=== PATIENT | female | born 1955 | race African-American/Black ===

== ENCOUNTER 2021-08-20 13:27 | Inpatient (IN) | payer MEDICAID, OTHER ==
[~2021-08-20] VITALS: Ht 162.6 cm; Wt 52.9 kg
[2021-08-20] MEDS ORDERED: SODIUM CHLORIDE 0.9% 1,000 ML IV ONE (15:15)
[2021-08-20 15:28] LABS: HEMATOCRIT. 25.6 % (36.0-48.0); HEMOGLOBIN. 7.8 g/dL (12.0-16.0); MEAN CORPUSCULAR HEMOGLOBIN 25.3 pg (28.0-32.0); MEAN CORPUSCULAR VOLUME 82.9 fL (81.0-99.0); MEAN PLATELET VOLUME 7.9 fl (7.4-10.4); PLATELET 555 x1000/uL (130-400); RED BLOOD CELL COUNT 3.09 mill/uL (4.2-5.4); RED CELL DISTRIBUTION WIDTH 16.2 % (11.6-14.6)
[2021-08-20 15:30] LABS: CHLORIDE 113 mEq/L (98-107)
[2021-08-20] MEDS ORDERED: SODIUM CHLORIDE 0.9% 1000ML BAG (SEPSIS BOLUS) IV ONE (15:45)
[2021-08-20] MEDS ORDERED: VANCOMYCIN 1 G PREMIX 200 ML IV ONE (15:45)
[2021-08-20] MEDS ORDERED: PIPERACILLIN/TAZ 3.375G PREMIX 50 ML IV ONE (15:45)
[2021-08-20 17:32] LABS: PLATELET ESTIMATE INCREASED
[2021-08-20 21:06] VITALS: BP 131/63
[2021-08-20 21:09] VITALS: BP 131/63
[2021-08-20 22:05] VITALS: BP 125/90
[2021-08-20] MEDS ORDERED: MORPHINE SULFATE 2 MG/ML CPJ (NOT FOR IM USE) IV PRN (22:15)
[2021-08-20] MEDS ORDERED: ONDANSETRON HCL 4MG/2ML INJ IV PRN (22:15)
[2021-08-20] MEDS ORDERED: NALOXONE HCL 0.4MG/ML VIAL IV PRN (22:30)
[2021-08-20] MEDS: DEXT 5%/0.9% NACL 1,000 ML IV SCH (23:12)
[2021-08-20] MEDS: PIPERACILLIN/TAZOBACTAM 3.375 G in DEXTROSE 5% WATER 50 ML IV SCH (23:13)
[2021-08-21] VITALS (14 sets, daily range): BP systolic 110–152; BP diastolic 62–87
[2021-08-21] MEDS ORDERED: TOPUD PO (04:09)
[2021-08-21] MEDS ORDERED: DOCU100T GT (04:11)
[2021-08-21] MEDS ORDERED: GABAPENTIN 250 MG/5 ML GT (04:19)
[2021-08-21] MEDS ORDERED: SENN-155 GT (04:21)
[2021-08-21] MEDS ORDERED: HYDR118S9 GT (04:23)
[2021-08-21] MEDS ORDERED: LOSA25TA26 GT (04:24)
[2021-08-21] MEDS ORDERED: POLY17PO3 GT (04:25)
[2021-08-21] MEDS ORDERED: [UNRECOGNIZED DRUG - OTHER] GT (04:29)
[2021-08-21] MEDS ORDERED: OMEP40CA20 GT (04:29)
[2021-08-21] MEDS: PIPERACILLIN/TAZOBACTAM 3.375 G in DEXTROSE 5% WATER 50 ML IV SCH ×3 (06:09→22:26)
[2021-08-21] MEDS: DEXT 5%/0.9% NACL 1,000 ML IV SCH (06:10)
[2021-08-21 08:05] LABS: CHLORIDE 111 mEq/L (98-107)
[2021-08-21] MEDS: PANTOPRAZOLE SODIUM 40 MG/VIAL IV SCH (08:18)
[2021-08-21 08:42] LABS: HEMOGLOBIN. 8.7 g/dL (12.0-16.0); MEAN CORPUSCULAR HEMOGLOBIN 26.2 pg (28.0-32.0); MEAN CORPUSCULAR VOLUME 83.7 fL (81.0-99.0); PLATELET 501 x1000/uL (130-400); RED BLOOD CELL COUNT 3.34 mill/uL (4.2-5.4); RED CELL DISTRIBUTION WIDTH 16.1 % (11.6-14.6)
[2021-08-21] MEDS: VANCOMYCIN 750 MG PREMIX 150 ML IV SCH (09:41)
[2021-08-21] MEDS ORDERED: PIPERACILLIN/TAZOBACTAM 3.375 G in DEXTROSE 5% WATER 50 ML IV SCH (11:45)
[2021-08-21] MEDS ORDERED: IPRATROPIUM/ALBUTEROL 0.5-3(2.5)MG/3ML NEB HHN PRN (11:45)
[2021-08-21] MEDS ORDERED: MAGNESIUM/ALUMINUM HYDROXIDE/SIMETHICONE 30ML UDC PO PRN (11:45)
[2021-08-21] MEDS ORDERED: DOCUSATE SODIUM 100MG CAPSULE PO PRN (11:45)
[2021-08-21] MEDS ORDERED: HYDROCODONE/ACETAMINOPHEN 5/325MG TABLET PO PRN (11:45)
[2021-08-21] MEDS ORDERED: DIPHENHYDRAMINE 50MG/ML VIAL IV PRN (11:45)
[2021-08-21] MEDS ORDERED: CLONIDINE 0.1MG TABLET PO PRN (11:45)
[2021-08-21] MEDS ORDERED: LIDOCAINE HCL 1% 10 MG/ML 10ML VIAL ONE (12:58)
[2021-08-21 13:49] LABS: PLATELET ESTIMATE INCREASED
[2021-08-21 15:01] LABS: TOTAL IRON BINDING CAPACITY 185 ug/dL (250-450)
[2021-08-21 19:43] LABS: CLARITY URINE CLEAR (CLEAR); COLOR URINE YELLOW (YELLOW); KETONES URINE NEGATIVE (NEGATIVE); LEUKOCYTE ESTERASE URINE NEGATIVE (NEGATIVE); NITRITE URINE NEGATIVE (NEGATIVE); OCCULT BLOOD URINE NEGATIVE (NEGATIVE); PROTEIN URINE NEGATIVE (NEGATIVE); SPECIFIC GRAVITY URINE 1.022 (1.005-1.030)
[2021-08-22] VITALS (12 sets, daily range): BP systolic 120–149; BP diastolic 58–78
[2021-08-22] MEDS: VANCOMYCIN 750 MG PREMIX 150 ML IV SCH ×2 (04:35→22:01)
[2021-08-22] MEDS: DEXT 5%/0.9% NACL 1,000 ML IV SCH ×3 (06:11→23:22)
[2021-08-22] MEDS: PIPERACILLIN/TAZOBACTAM 3.375 G in DEXTROSE 5% WATER 50 ML IV SCH ×3 (06:12→23:22)
[2021-08-22 06:39] LABS: HEMATOCRIT. 26.5 % (36.0-48.0); HEMOGLOBIN. 8.4 g/dL (12.0-16.0); MEAN CORPUSCULAR HEMOGLOBIN 26.2 pg (28.0-32.0); MEAN CORPUSCULAR VOLUME 82.8 fL (81.0-99.0); MEAN PLATELET VOLUME 8.1 fl (7.4-10.4); PLATELET 451 x1000/uL (130-400); RED BLOOD CELL COUNT 3.21 mill/uL (4.2-5.4); RED CELL DISTRIBUTION WIDTH 16.2 % (11.6-14.6)
[2021-08-22 08:29] LABS: CHLORIDE 107 mEq/L (98-107)
[2021-08-22 08:43] LABS: PHOSPHORUS 2.3 mg/dL (2.5-4.9)
[2021-08-22] MEDS: PANTOPRAZOLE SODIUM 40 MG/VIAL IV SCH (08:57)
[2021-08-22 18:38] LABS: PLATELET ESTIMATE SLIGHTLY INCREASED
[2021-08-23] VITALS (12 sets, daily range): BP systolic 94–148; BP diastolic 52–75
[2021-08-23] MEDS: PIPERACILLIN/TAZOBACTAM 3.375 G in DEXTROSE 5% WATER 50 ML IV SCH ×3 (06:25→22:07)
[2021-08-23] MEDS: DEXT 5%/0.9% NACL 1,000 ML IV SCH ×2 (06:29→22:08)
[2021-08-23 07:20] LABS: HEMATOCRIT. 26.8 % (36.0-48.0); HEMOGLOBIN. 8.5 g/dL (12.0-16.0); MEAN CORPUSCULAR HEMOGLOBIN 26.4 pg (28.0-32.0); MEAN CORPUSCULAR VOLUME 83.1 fL (81.0-99.0); MEAN PLATELET VOLUME 8.3 fl (7.4-10.4); PLATELET 479 x1000/uL (130-400); RED BLOOD CELL COUNT 3.23 mill/uL (4.2-5.4); RED CELL DISTRIBUTION WIDTH 16.6 % (11.6-14.6)
[2021-08-23 07:32] LABS: CHLORIDE 107 mEq/L (98-107)
[2021-08-23 07:37] LABS: PHOSPHORUS 2.2 mg/dL (2.5-4.9)
[2021-08-23] MEDS: PANTOPRAZOLE SODIUM 40 MG/VIAL IV SCH (09:00)
[2021-08-23] MEDS: VANCOMYCIN 750 MG PREMIX 150 ML IV SCH (13:21)
[2021-08-23] MEDS ORDERED: LIDOCAINE HCL 1% 10 MG/ML 10ML VIAL ONE (14:49)
[2021-08-23 16:33] LABS: PLATELET ESTIMATE INCREASED
[2021-08-24] VITALS (15 sets, daily range): BP systolic 91–121; BP diastolic 45–64
[2021-08-24] MEDS: VANCOMYCIN 750 MG PREMIX 150 ML IV SCH ×2 (01:06→13:45)
[2021-08-24 06:08] LABS: CANCER ANTIGEN 125 12.1 U/mL (0.0-38.1)
[2021-08-24] MEDS: PIPERACILLIN/TAZOBACTAM 3.375 G in DEXTROSE 5% WATER 50 ML IV SCH ×2 (06:14→13:45)
[2021-08-24 07:50] LABS: HEMOGLOBIN. 7.6 g/dL (12.0-16.0); MEAN CORPUSCULAR HEMOGLOBIN 25.8 pg (28.0-32.0); MEAN CORPUSCULAR VOLUME 81.9 fL (81.0-99.0); MEAN PLATELET VOLUME 7.7 fl (7.4-10.4); PLATELET 471 x1000/uL (130-400); RED BLOOD CELL COUNT 2.93 mill/uL (4.2-5.4); RED CELL DISTRIBUTION WIDTH 16.7 % (11.6-14.6)
[2021-08-24] MEDS ORDERED: GADOTERATE MEGLUMINE 5 MMOL/10 ML VIAL IV ONE (07:52)
[2021-08-24 08:07] LABS: CHLORIDE 109 mEq/L (98-107)
[2021-08-24] MEDS: PANTOPRAZOLE SODIUM 40 MG/VIAL IV SCH (10:16)
[2021-08-24 15:42] LABS: PLATELET ESTIMATE INCREASED
[2021-08-24] MEDS: ACETAMINOPHEN 650MG/20.3ML UDC GT PRN (21:33)
[2021-08-25] VITALS (15 sets, daily range): BP systolic 100–148; BP diastolic 51–92
[2021-08-25] MEDS: PIPERACILLIN/TAZOBACTAM 3.375 G in DEXTROSE 5% WATER 50 ML IV SCH ×4 (01:46→22:15)
[2021-08-25] MEDS: VANCOMYCIN 750 MG PREMIX 150 ML IV SCH ×2 (01:57→12:50)
[2021-08-25 07:27] LABS: HEMATOCRIT. 27.5 % (36.0-48.0); HEMOGLOBIN. 8.9 g/dL (12.0-16.0); MEAN CORPUSCULAR HEMOGLOBIN 26.1 pg (28.0-32.0); MEAN CORPUSCULAR VOLUME 80.9 fL (81.0-99.0); MEAN PLATELET VOLUME 7.8 fl (7.4-10.4); PLATELET 525 x1000/uL (130-400); RED CELL DISTRIBUTION WIDTH 16.6 % (11.6-14.6)
[2021-08-25 08:15] LABS: CHLORIDE 107 mEq/L (98-107)
[2021-08-25] MEDS: PANTOPRAZOLE SODIUM 40 MG/VIAL IV SCH (08:52)
[2021-08-25] MEDS: ACETAMINOPHEN 650MG/20.3ML UDC GT PRN (12:50)
[2021-08-26] VITALS: BP 132/73
[2021-08-26 02:00] VITALS: BP 134/74
[2021-08-26] MEDS ORDERED: VANCOMYCIN 750 MG PREMIX 150 ML IV SCH (06:00)
[2021-08-26 14:02] LABS: PLATELET ESTIMATE INCREASED
== END 2021-08-25 03:36 | DRG 720 ==
LOC: ER 13:43 → 3WST 15:44 → EDBEDREQTM 16:14 → EDBEDREQSVC 16:14 → EDBEDREQ 16:14 → ENRESERV 19:56 → 3WST 08-22 12:26
PROVIDERS: ADMIT Internal Medicine; ATTEND Internal Medicine
PROC: 30233N1 Transfusion of Nonautologous Red Blood Cells into Peripheral Vein, Percutaneous Approach (ICD-10-PCS; principal; 2021-08-20)
PROC: 02HV33Z Insertion of Infusion Device into Superior Vena Cava, Percutaneous Approach (ICD-10-PCS; 2021-08-21)
PROC: B548ZZA Ultrasonography of Superior Vena Cava, Guidance (ICD-10-PCS; 2021-08-21)
PROC: B54MZZA Ultrasonography of Right Upper Extremity Veins, Guidance (ICD-10-PCS; 2021-08-23)
PROC: 05HY33Z Insertion of Infusion Device into Upper Vein, Percutaneous Approach (ICD-10-PCS; 2021-08-23)
DX: A41.9 Sepsis, unspecified organism (principal); E43 Unspecified severe protein-calorie malnutrition; C07 Malignant neoplasm of parotid gland; C75.0 Malignant neoplasm of parathyroid gland; D62 Acute posthemorrhagic anemia; I10 Essential (primary) hypertension; Z20.822 Contact with and (suspected) exposure to COVID-19; K21.9 Gastro-esophageal reflux disease without esophagitis; Z78.1 Physical restraint status; Z87.891 Personal history of nicotine dependence; Z79.899 Other long term (current) drug therapy; Z88.0 Allergy status to penicillin
CPT/HCPCS: 36415; 70543; 71045; 76937; 80048; 80053; 80076; 80202; 81003; 82105; 82378; 83540; 83550; 83605; 83735; 84100; 84134; 84145; 84484; 85025; 85651; 86141; 86301; 86304; 86850; 86900; 86920; 87426; 93970; 99291; A9577; C1725; C1893; C9113; J2270; J2543; J3370; J3490; J7030; J7040; J7042; J7060; P9016